=== PATIENT | male | born 1950 ===

== ENCOUNTER 2021-03-02 06:23 | Day surgery (SDC) | payer OTHER ==
[~2021-03-02 06:23] MED LIST: CVS DAILY MULT1 EAC2 PO; LIPIT PO; LOSARTAN-HCTZ1 EACH PO; MAGNESIUM PO; MAGNESIUM400 MG PO; MULTI VITAMIN1 EACH PO; NEURIVA DE-STR1 EACH PO; VITAMIN C100 MG PO; ZINC50 M1 PO
[2021-03-02] MEDS ORDERED: NEURONTIN600 M1 PO (16:19)
[2021-03-02] MEDS ORDERED: PERCOCET 5-3251 EACH PO (16:19)
[2021-03-02] MEDS ORDERED: POLY119PG PO (16:20)
== END 2021-03-02 19:35 | disposition home or self-care (01) ==
LOC: CIR.AMB 06:23
PROVIDERS: ATTEND Surgery
DX: K40.90 Unilateral inguinal hernia, without obstruction or gangrene, not specified as recurrent (principal)